=== PATIENT | female | born 1945 | race Caucasian/White ===

== ENCOUNTER → 2019-01-06 | Outpatient (CLI) | payer OTHER ==
[~2019-01-06] VITALS: Ht 165.1 cm; Wt 78.8 kg
[~2019-01-06] MED LIST: ASPI-556 PO; HYD25 PO; LISI-662 PO; LORA10TA7 PO; METF-960 PO; METO25 PO; NIFE30TA5 PO; RANI150T7 PO; SIMV-260 PO; SITA100 PO; TRAZ-252 PO; [UNRECOGNIZED DRUG - REMARK]
[2019-01-06 08:51] VITALS: BP 138/59
== END | disposition home or self-care (01) ==
LOC: HBOWC 08:15
PROVIDERS: ATTEND Internal Medicine
DX: T81.89XD Other complications of procedures, not elsewhere classified, subsequent encounter (principal); E11.9 Type 2 diabetes mellitus without complications; I10 Essential (primary) hypertension; Y83.8 Other surgical procedures as the cause of abnormal reaction of the patient, or of later complication, without mention of misadventure at the time of the procedure